=== PATIENT | female | born 1955 | race Caucasian/White ===

== ENCOUNTER 2019-11-27 17:17 | Inpatient (IN) ==
[2019-11-27] MEDS ORDERED: NS 0.9% 1000 ml BAG 1,000 ML IV ONE ×2 (18:45→22:29)
[2019-11-27 18:52] LABS: ABS Basophils 0.1 10^3/ul (0-0.2); ABS Eosinophils 0.1 10^3/ul (0-0.6); ABS Lymphocytes 2.1 10^3/ul (1.0-4.8); ABS Monocytes 1.1 10^3/ul (0-0.8); Eosinophil % 1.2 %; Hematocrit 38 % (35-47); Hemoglobin 13.2 g/dL (12.0-16.0); Mean Corpuscular HGB Conc 35 g/dL (31-36); Mean Corpuscular Hemoglobin 35 pg (27-31); Mean Corpuscular Volume 100 fL (80-97); Mean Platelet Volume 8.8 fL (7.4-10.4); Nucleated Red Blood Cells % 0.1; Platelet Count 256 10^3/uL (150-450); Red Blood Count 3.79 10^6 /uL (3.70-4.87); Red Cell Distribution Width 14 % (10-15); White Blood Count 11.2 10^3/uL (3.5-10.8)
[2019-11-27 19:02] LABS: Activated Partial Thrombo Time 34.7 seconds (26.0-38.0); INR 1.49 (0.82-1.09)
[2019-11-27 19:13] LABS: Albumin 2.9 g/dL (3.2-5.2); Albumin/Globulin Ratio 0.8 (1-3); BUN/Creatinine Ratio 15.8 (8-20); Globulin 3.8 g/dL (2-4); Potassium 2.8 mmol/L (3.5-5.0); Total Protein 6.7 g/dL (6.4-8.9)
[2019-11-27 19:41] LABS: TSH (Thyroid Stimulating Horm) 5.77 mcIU/mL (0.34-5.60)
[2019-11-27] MEDS ORDERED: Potassium Chlor 20 meq TAB.ER PO ONE ×2 (19:41→23:20)
[2019-11-27 19:43] LABS: Free T4 0.98 ng/dL (0.61-1.12)
[2019-11-27 20:11] LABS: Alcohol, S < 10 mg/dL (<10); Magnesium 2.2 mg/dL (1.9-2.7)
[2019-11-27 21:32] LABS: Influenza A Molecular Negative (Negative); Influenza B Molecular Negative (Negative)
[2019-11-27] MEDS ORDERED: Thiamine 100 MG/ML 2 ml VIAL (200 mg) IM ONE (23:22)
[2019-11-27] MEDS ORDERED: Ofloxacin 0.3% (Eye Drop) 5 ml BTL BOTH EYES SCH (23:45)
[2019-11-28] MEDS: Ondansetron 4 mg VIAL 2 MG/ML 2 ml VIAL IV PRN ×3 (01:04→20:03)
[2019-11-28] MEDS: Ciprofloxacin 0.3% OPTH.SOL 5 ML BTL BOTH EYES SCH ×12 (01:12→23:25)
[2019-11-28] MEDS: NS 0.9% w/ 20 Meq KCL 1000 ml 1,000 ML IV SCH ×2 (01:18→18:21)
[2019-11-28] MEDS: Heparin 5000 UNITS/ML 1 mL VIAL SUBCUT SCH ×3 (05:57→20:03)
[2019-11-28 06:53] LABS: BUN/Creatinine Ratio 15.7 (8-20); EGFR African American 27.5 (>60); EGFR Non-African American 22.7 (>60)
[2019-11-28 07:45] LABS: Potassium 3.4 mmol/L (3.5-5.0)
[2019-11-28] MEDS: Multivitamins/Minerals TAB PO SCH (08:09)
[2019-11-28] MEDS: cefTRIAXone 1 gm/50 mL NS BAG 1 GM/50 ML BAG IVPB SCH (18:21)
[2019-11-28] MEDS: Pantoprazole VIAL 40 MG VIAL IV SCH (20:03)
[2019-11-29] MEDS: Ciprofloxacin 0.3% OPTH.SOL 5 ML BTL BOTH EYES SCH ×12 (02:31→22:17)
[2019-11-29] MEDS: Heparin 5000 UNITS/ML 1 mL VIAL SUBCUT SCH ×3 (04:43→22:17)
[2019-11-29 06:44] LABS: Albumin 2.3 g/dL (3.2-5.2); Potassium 3.4 mmol/L (3.5-5.0); Total Bilirubin 1.7 mg/dL (0.2-1.0)
[2019-11-29 06:50] LABS: Albumin/Globulin Ratio 0.7 (1-3); BUN/Creatinine Ratio 13.7 (8-20); EGFR African American 26.1 (>60); EGFR Non-African American 21.5 (>60); Globulin 3.1 g/dL (2-4); Total Protein 5.4 g/dL (6.4-8.9)
[2019-11-29] MEDS ORDERED: NS 0.9% 1000 ml BAG 1,000 ML IV ONE (07:27)
[2019-11-29 07:56] LABS: Urine Appearance Cloudy; Urine Bilirubin Negative (Negative); Urine Blood Negative (Negative); Urine Color Amber; Urine Glucose Negative (Negative); Urine Ketones Trace (Negative); Urine Nitrite Negative (Negative); Urine Protein Negative (Negative); Urine Specific Gravity 1.015 (1.010-1.030); Urine Urobilinogen Negative (Negative)
[2019-11-29 07:59] LABS: Urine Bacteria 1+ (Absent); Urine Red Blood Cell Trace(0-2/hpf) (Absent); Urine Squamous Epithelial Cell Present (Absent); Urine White Blood Cell 3+(>20/hpf) (Absent)
[2019-11-29] MEDS: Multivitamins/Minerals TAB PO SCH (08:15)
[2019-11-29] MEDS: Pantoprazole VIAL 40 MG VIAL IV SCH ×2 (08:18→20:18)
[2019-11-29] MEDS ORDERED: Phytonadione IV (Adult) 10 MG/ML 1 ML AMP IV ONE (09:34)
[2019-11-29] MEDS: NS 0.9% 1000 ml BAG 1,000 ML IV SCH ×2 (09:43→22:17)
[2019-11-29] MEDS ORDERED: Phytonadione 10 mg in 50 mL NS over 30 min IV ONE (10:00)
[2019-11-29 10:19] LABS: C Reactive Protein 26.18 mg/L (<8.01)
[2019-11-29] MEDS: Ondansetron 4 mg VIAL 2 MG/ML 2 ml VIAL IV PRN ×2 (13:59→17:36)
[2019-11-29] MEDS: cefTRIAXone 1 gm/50 mL NS BAG 1 GM/50 ML BAG IVPB SCH (17:41)
[2019-11-29 21:17] LABS: Urine Creatinine Concentration 190.75 mg/dL; Urine Sodium Concentration < 18 mmol/L
[2019-11-30] MEDS: Ciprofloxacin 0.3% OPTH.SOL 5 ML BTL BOTH EYES SCH ×13 (00:03→23:44)
[2019-11-30] MEDS: Heparin 5000 UNITS/ML 1 mL VIAL SUBCUT SCH ×3 (06:02→22:42)
[2019-11-30 06:56] LABS: INR 1.35 (0.82-1.09)
[2019-11-30 08:08] LABS: Potassium 3.3 mmol/L (3.5-5.0)
[2019-11-30 08:09] LABS: Calcium 8.5 mg/dL (8.6-10.3)
[2019-11-30 08:11] LABS: EGFR African American 30.2 (>60); EGFR Non-African American 24.9 (>60)
[2019-11-30] MEDS: Ondansetron 4 mg VIAL 2 MG/ML 2 ml VIAL IV PRN (08:22)
[2019-11-30] MEDS: Pantoprazole VIAL 40 MG VIAL IV SCH ×2 (08:25→19:51)
[2019-11-30] MEDS: Multivitamins/Minerals TAB PO SCH (08:27)
[2019-11-30] MEDS: Sodium Bicarb 650 mg (ANTACID) TAB PO SCH ×2 (10:53→16:21)
[2019-11-30] MEDS: NS 0.9% 1000 ml BAG 1,000 ML IV SCH (12:46)
[2019-11-30] MEDS ORDERED: PEG 3000 GI LAVAGE 1 GALLON PO ONE (13:04)
[2019-11-30] MEDS: cefTRIAXone 1 gm/50 mL NS BAG 1 GM/50 ML BAG IVPB SCH (18:09)
[2019-12-01] MEDS: Ciprofloxacin 0.3% OPTH.SOL 5 ML BTL BOTH EYES SCH ×9 (02:20→22:03)
[2019-12-01] MEDS: NS 0.9% 1000 ml BAG 1,000 ML IV SCH ×2 (03:04→22:01)
[2019-12-01] MEDS: Heparin 5000 UNITS/ML 1 mL VIAL SUBCUT SCH ×3 (05:29→22:03)
[2019-12-01 07:02] LABS: Hematocrit 33 % (35-47); Hemoglobin 11.4 g/dL (12.0-16.0); Mean Corpuscular HGB Conc 34 g/dL (31-36); Mean Corpuscular Hemoglobin 35 pg (27-31); Mean Corpuscular Volume 101 fL (80-97); Mean Platelet Volume 8.5 fL (7.4-10.4); Platelet Count 226 10^3/uL (150-450); Red Blood Count 3.27 10^6 /uL (3.70-4.87); Red Cell Distribution Width 14 % (10-15); White Blood Count 12.7 10^3/uL (3.5-10.8)
[2019-12-01 07:27] LABS: BUN/Creatinine Ratio 11.9 (8-20); Calcium 8.2 mg/dL (8.6-10.3); EGFR African American 34.7 (>60); EGFR Non-African American 28.7 (>60)
[2019-12-01 08:53] LABS: ABS Basophils 0.2 10^3/ul (0-0.2); ABS Eosinophils 0.3 10^3/ul (0-0.6); ABS Lymphocytes 3.4 10^3/ul (1.0-4.8); ABS Monocytes 1.6 10^3/ul (0-0.8); Eosinophil % 2.4 %; Lymphocyte % 26.5 %; Nucleated Red Blood Cells % 0.2
[2019-12-01] MEDS: Multivitamins/Minerals TAB PO SCH (09:09)
[2019-12-01] MEDS: Sodium Bicarb 650 mg (ANTACID) TAB PO SCH ×3 (09:09→17:52)
[2019-12-01] MEDS: Pantoprazole VIAL 40 MG VIAL IV SCH ×2 (09:11→20:42)
[2019-12-01] MEDS: KCL 20 MEQ/100 ML IVPREMIX 20 MEQ/100 ML BAG IV SCH ×2 (12:30→17:42)
[2019-12-01] MEDS ORDERED: fentaNYL 100 mcg/2 ml 50 MCG/ML VIAL ONE (12:40)
[2019-12-01] MEDS ORDERED: Midazolam 10 mg/10 ml VIAL 1 mg/ml 10 ml VIAL (10 mg) ONE (12:40)
[2019-12-01] MEDS: cefTRIAXone 1 gm/50 mL NS BAG 1 GM/50 ML BAG IVPB SCH (17:52)
[2019-12-01] MEDS ORDERED: PEG 3000 GI LAVAGE 1 GALLON PO ONE (19:00)
[2019-12-02] MEDS: Ciprofloxacin 0.3% OPTH.SOL 5 ML BTL BOTH EYES SCH ×11 (00:47→22:45)
[2019-12-02] MEDS: Heparin 5000 UNITS/ML 1 mL VIAL SUBCUT SCH ×3 (05:55→22:43)
[2019-12-02] MEDS ORDERED: PEG 3000 GI LAVAGE 1 GALLON PO ONE (08:40)
[2019-12-02] MEDS: Multivitamins/Minerals TAB PO SCH (08:41)
[2019-12-02] MEDS: Sodium Bicarb 650 mg (ANTACID) TAB PO SCH ×3 (08:41→18:00)
[2019-12-02] MEDS: Pantoprazole VIAL 40 MG VIAL IV SCH ×2 (08:44→22:42)
[2019-12-02] MEDS ORDERED: fentaNYL 100 mcg/2 ml 50 MCG/ML VIAL ONE (14:43)
[2019-12-02] MEDS ORDERED: Midazolam 10 mg/10 ml VIAL 1 mg/ml 10 ml VIAL (10 mg) ONE (14:43)
[2019-12-02] MEDS: cefTRIAXone 1 gm/50 mL NS BAG 1 GM/50 ML BAG IVPB SCH (18:01)
[2019-12-03] MEDS: Ciprofloxacin 0.3% OPTH.SOL 5 ML BTL BOTH EYES SCH ×12 (01:00→23:57)
[2019-12-03] MEDS: Heparin 5000 UNITS/ML 1 mL VIAL SUBCUT SCH ×3 (06:02→22:14)
[2019-12-03 07:23] LABS: Calcium 8.1 mg/dL (8.6-10.3); EGFR African American 47.1 (>60); EGFR Non-African American 38.9 (>60); Potassium 3.2 mmol/L (3.5-5.0)
[2019-12-03] MEDS: Sodium Bicarb 650 mg (ANTACID) TAB PO SCH ×3 (08:54→17:07)
[2019-12-03] MEDS: Multivitamins/Minerals TAB PO SCH (08:54)
[2019-12-03] MEDS ORDERED: Potassium Chlor 10 meq TAB PO ONE (10:19)
[2019-12-03] MEDS: Ondansetron 4 mg VIAL 2 MG/ML 2 ml VIAL IV PRN ×2 (14:02→23:57)
[2019-12-04] MEDS: Ciprofloxacin 0.3% OPTH.SOL 5 ML BTL BOTH EYES SCH ×5 (03:26→09:53)
[2019-12-04] MEDS: Heparin 5000 UNITS/ML 1 mL VIAL SUBCUT SCH ×3 (06:24→20:02)
[2019-12-04 07:00] LABS: BUN/Creatinine Ratio 11.6 (8-20); Calcium 8.2 mg/dL (8.6-10.3); EGFR African American 53.9 (>60); EGFR Non-African American 44.5 (>60); Potassium 3.2 mmol/L (3.5-5.0)
[2019-12-04] MEDS: Sodium Bicarb 650 mg (ANTACID) TAB PO SCH ×3 (08:02→16:39)
[2019-12-04] MEDS: Multivitamins/Minerals TAB PO SCH (08:03)
[2019-12-04] MEDS: Potassium Chlor 20 meq TAB.ER PO SCH ×2 (08:20→12:24)
[2019-12-05] MEDS: Heparin 5000 UNITS/ML 1 mL VIAL SUBCUT SCH (05:28)
[2019-12-05 05:41] LABS: Calcium 8.3 mg/dL (8.6-10.3); EGFR African American 60.8 (>60); EGFR Non-African American 50.2 (>60); Potassium 3.9 mmol/L (3.5-5.0)
[2019-12-05] MEDS: Multivitamins/Minerals TAB PO SCH (08:32)
[2019-12-05] MEDS: Sodium Bicarb 650 mg (ANTACID) TAB PO SCH ×3 (08:32→17:18)
[2019-12-05] MEDS ORDERED: Furosemide 20 mg/2 ml IV VIAL IV SLOW PU ONE (09:46)
[2019-12-05] MEDS: Enoxaparin 40 MG/0.4 ML SYR(*) SUBCUT SCH (13:09)
[2019-12-05] MEDS: Ondansetron 4 mg VIAL 2 MG/ML 2 ml VIAL IV PRN (19:07)
[2019-12-06] MEDS: Sodium Bicarb 650 mg (ANTACID) TAB PO SCH ×3 (09:13→17:25)
[2019-12-06] MEDS: Multivitamins/Minerals TAB PO SCH (09:13)
[2019-12-06] MEDS ORDERED: Furosemide 20 mg/2 ml IV VIAL IV SLOW PU ONE (11:40)
[2019-12-06] MEDS: Enoxaparin 40 MG/0.4 ML SYR(*) SUBCUT SCH (13:14)
[2019-12-06] MEDS: Ondansetron 4 mg VIAL 2 MG/ML 2 ml VIAL IV PRN (13:23)
[2019-12-07 05:45] LABS: BUN/Creatinine Ratio 9.8 (8-20); Calcium 8.4 mg/dL (8.6-10.3); EGFR African American 53.4 (>60); EGFR Non-African American 44.1 (>60); Potassium 3.7 mmol/L (3.5-5.0)
[2019-12-07] MEDS: Sodium Bicarb 650 mg (ANTACID) TAB PO SCH ×3 (08:00→17:03)
[2019-12-07] MEDS: Multivitamins/Minerals TAB PO SCH (09:49)
[2019-12-07] MEDS: Enoxaparin 40 MG/0.4 ML SYR(*) SUBCUT SCH (14:44)
[2019-12-07] MEDS: Ondansetron 4 mg VIAL 2 MG/ML 2 ml VIAL IV PRN (21:37)
[2019-12-08] MEDS: Multivitamins/Minerals TAB PO SCH (08:08)
[2019-12-08] MEDS: Sodium Bicarb 650 mg (ANTACID) TAB PO SCH ×2 (08:08→17:47)
[2019-12-08] MEDS: Ondansetron 4 mg VIAL 2 MG/ML 2 ml VIAL IV PRN (11:13)
[2019-12-08 17:33] VITALS: BP 114/66
== END 2019-12-08 12:30 | DRG 391 ==
LOC: MED 17:17 → ED 17:17 → MED 23:59
PROVIDERS: ADMIT Internal Medicine; ATTEND Internal Medicine

== ENCOUNTER 2020-03-09 12:03 | Inpatient (IN) ==
[2020-03-09] MEDS ORDERED: Furosemide 40 mg/4 ml IV VIAL IV ONE (12:34)
[2020-03-09 12:57] LABS: ABS Basophils 0.1 10^3/ul (0-0.2); ABS Eosinophils 0.2 10^3/ul (0-0.6); ABS Lymphocytes 2.4 10^3/ul (1.0-4.8); ABS Monocytes 0.9 10^3/ul (0-0.8); Hematocrit 41 % (35-47); Lymphocyte % 25.3 %; Mean Corpuscular HGB Conc 34 g/dL (31-36); Mean Corpuscular Hemoglobin 33 pg (27-31); Mean Corpuscular Volume 96 fL (80-97); Platelet Count 469 10^3/uL (150-450); Red Blood Count 4.24 10^6 /uL (3.70-4.87); Red Cell Distribution Width 16 % (10-15); White Blood Count 9.5 10^3/uL (3.5-10.8)
[2020-03-09 13:11] LABS: Activated Partial Thrombo Time 37.1 seconds (26.0-38.0); INR 1.26 (0.82-1.09)
[2020-03-09 13:21] LABS: Albumin 2.7 g/dL (3.2-5.2); Albumin/Globulin Ratio 0.6 (1-3); BUN/Creatinine Ratio 16.5 (8-20); C Reactive Protein 91.51 mg/L (<8.01); Calcium 9.3 mg/dL (8.6-10.3); EGFR African American 88.1 (>60); EGFR Non-African American 72.8 (>60); Globulin 4.2 g/dL (2-4); Potassium 2.9 mmol/L (3.5-5.0); Total Bilirubin 1.4 mg/dL (0.2-1.0); Total Protein 6.9 g/dL (6.4-8.9)
[2020-03-09 13:23] LABS: Troponin I 0.02 ng/mL (<0.03)
[2020-03-09 13:25] LABS: CKMB ng/mL 1.1 ng/mL (0.6-6.3)
[2020-03-09 13:37] LABS: Alcohol, S < 10 mg/dL (<10)
[2020-03-09] MEDS ORDERED: cefTRIAXone 1 gm/50 mL NS BAG 1 GM/50 ML BAG IV ONE (13:49)
[2020-03-09] MEDS ORDERED: Potassium Chlor 20 meq TAB.ER PO ONE (13:51)
[2020-03-09 14:13] LABS: Magnesium 1.6 mg/dL (1.9-2.7)
[2020-03-09] MEDS ORDERED: Iodixanol (CONTRAST) 320 MG/ML 100 ML SDV IV ONE (14:21)
[2020-03-09] MEDS ORDERED: Al Hydrox/Mg Hydrox/Simet LIQ 30 ML UDC PO PRN (14:42)
[2020-03-09] MEDS ORDERED: Morphine 2 MG/ML SYRINGE IV PRN (14:42)
[2020-03-09] MEDS ORDERED: Ondansetron 4 mg VIAL 2 MG/ML 2 ml VIAL IV PRN (14:42)
[2020-03-09] MEDS ORDERED: KCL 20 MEQ/100 ML IVPREMIX 20 MEQ/100 ML BAG IV ONE (14:51)
[2020-03-09] MEDS ORDERED: Magnesium Sulfate IV 3 GM in NS 0.9% 100 ml BAG 100 ML IVPB ONE (14:51)
[2020-03-09] MEDS ORDERED: Albuterol 2.5mg/3 ml (0.083%) NEB.SOLN INH PRN (15:07)
[2020-03-09 17:24] LABS: Urine Appearance Clear; Urine Bilirubin Negative (Negative); Urine Blood Negative (Negative); Urine Color Straw; Urine Glucose Negative (Negative); Urine Ketones Negative (Negative); Urine Nitrite Negative (Negative); Urine Protein Negative (Negative); Urine Specific Gravity 1.005 (1.010-1.030); Urine Urobilinogen Negative (Negative)
[2020-03-09 17:25] LABS: Prealbumin 7 mg/dL (18-38)
[2020-03-09 17:34] LABS: TSH Ultra Thyroid Stim Horm 4.89 mcIU/mL (0.34-5.60)
[2020-03-09 17:39] LABS: Body Fluid Source Pleural Fluid
[2020-03-09 18:33] LABS: Body Fluid Mono 16 %; Body Fluid Other Cells 9
[2020-03-09] MEDS: Heparin 5000 UNITS/ML 1 mL VIAL SUBCUT SCH (22:59)
[2020-03-10] MEDS ORDERED: Potassium Chlor 20 meq TAB.ER PO ONE (02:01)
[2020-03-10] MEDS: Heparin 5000 UNITS/ML 1 mL VIAL SUBCUT SCH ×3 (05:15→22:41)
[2020-03-10 08:04] LABS: ABS Basophils 0.1 10^3/ul (0-0.2); ABS Eosinophils 0.2 10^3/ul (0-0.6); ABS Lymphocytes 3.3 10^3/ul (1.0-4.8); ABS Monocytes 1.2 10^3/ul (0-0.8); ABS Neutrophils 5.6 10^3/ul (1.5-7.7); Eosinophil % 2.2 %; Hematocrit 37 % (35-47); Hemoglobin 12.8 g/dL (12.0-16.0); Lymphocyte % 31.3 %; Mean Corpuscular HGB Conc 34 g/dL (31-36); Mean Corpuscular Hemoglobin 33 pg (27-31); Mean Corpuscular Volume 95 fL (80-97); Mean Platelet Volume 7.3 fL (7.4-10.4); Nucleated Red Blood Cells % 0.1; Platelet Count 412 10^3/uL (150-450); Red Blood Count 3.93 10^6 /uL (3.70-4.87); Red Cell Distribution Width 16 % (10-15); White Blood Count 10.5 10^3/uL (3.5-10.8)
[2020-03-10 08:13] LABS: Albumin 2.3 g/dL (3.2-5.2); Albumin/Globulin Ratio 0.6 (1-3); BUN/Creatinine Ratio 16.7 (8-20); Calcium 9.1 mg/dL (8.6-10.3); EGFR African American 89.4 (>60); EGFR Non-African American 73.9 (>60); Globulin 3.7 g/dL (2-4); Indirect Bilirubin 0.7 mg/dL (0.3-1.0); Total Bilirubin 1.2 mg/dL (0.2-1.0)
[2020-03-10] MEDS ORDERED: fentaNYL 100 mcg/2 ml 50 MCG/ML VIAL ONE (09:18)
[2020-03-10 11:02] LABS: Body Fluid Source Peritonial Fluid
[2020-03-10 14:02] LABS: Body Fluid Mono 27 %; Body Fluid Other Cells 5
[2020-03-10] MEDS: cefTRIAXone 1 gm/50 mL NS BAG 1 GM/50 ML BAG IVPB SCH ×2 (15:34→18:39)
[2020-03-10] MEDS: KCL 20 MEQ/100 ML IVPREMIX 20 MEQ/100 ML BAG IV SCH (16:57)
[2020-03-10] MEDS: Potassium Chlor 20 meq TAB.ER PO SCH (22:41)
[2020-03-11] MEDS: KCL 20 MEQ/100 ML IVPREMIX 20 MEQ/100 ML BAG IV SCH (01:06)
[2020-03-11] MEDS: Heparin 5000 UNITS/ML 1 mL VIAL SUBCUT SCH ×3 (05:47→20:42)
[2020-03-11 07:28] LABS: BUN/Creatinine Ratio 18.2 (8-20); Calcium 9.1 mg/dL (8.6-10.3); EGFR African American 90.8 (>60); Potassium 3.6 mmol/L (3.5-5.0)
[2020-03-11] MEDS: Potassium Chlor 20 meq TAB.ER PO SCH ×2 (09:19→22:39)
[2020-03-11 14:01] LABS: Lactate Dehydrogenase, BF 66 U/L
[2020-03-11 15:10] LABS: Fluid Type, Glucose PERITONEAL FLUI; Glucose, BF 102 mg/dL
[2020-03-11 15:14] LABS: Lactate Dehydrogenase, BF 43 U/L
[2020-03-11 15:16] LABS: Fluid Type, Protein, Total PLEURAL EFFUSION
[2020-03-11 15:18] LABS: Fluid Type, Glucose PLEURAL EFFUSION; Glucose, BF 126 mg/dL
[2020-03-11 15:22] LABS: Albumin, BF 1.1 g/dL; Fluid Type, Albumin PLEURAL EFFUSION
[2020-03-11] MEDS ORDERED: Lactated Ringers 1000 ml BAG 1,000 ML IV SCH (16:00)
[2020-03-12] MEDS: Heparin 5000 UNITS/ML 1 mL VIAL SUBCUT SCH (06:48)
[2020-03-12] MEDS ORDERED: Polyethylene Glycol 3350 17 GM PACKET PO PRN (08:14)
[2020-03-12] MEDS: Potassium Chlor 20 meq TAB.ER PO SCH (08:17)
[2020-03-12 10:37] LABS: Fluid Type, Amylase PERITONEAL FLUI
[2020-03-12 10:51] LABS: Fluid Type, Protein, Total PERITONEAL FLUI
[2020-03-12 11:46] VITALS: BP 127/65
[2020-03-16 11:32] LABS: Albumin, BF 0.8 g/dL; Fluid Type, Albumin PERITONEAL FLUID
== END 2020-03-12 09:40 | disposition short-term general hospital (02) | DRG 952 ==
LOC: ED 12:03 → ICU 14:42 → MED 21:32
PROVIDERS: ADMIT Pediatrics; ATTEND Hospitalist